=== PATIENT | female | born 1970 | race Caucasian/White ===

== ENCOUNTER 2019-11-20 15:22 | Emergency (ER) | payer OTHER, BC, SELFPAY ==
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
[2019-11-20 15:24] VITALS: BP 142/84; PULSE 102; RESP 18; TEMP 36.8; O2SAT 95
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
--- NOTE | 2019-11-20 15:56 | ECG_ITS ---
Measurements Intervals [place] Rate: 90 P: 12 SC: 180 QRS: 32 QRSD: 87 T: 31 QT: 355 QTc: 436 Interpretive Statements SINUS RHYTHM BORDERLINE R WAVE PROGRESSION, ANTERIOR LEADS BORDERLINE ECG Electronically Signed On 11-21-2019 8:14:16 CDT by Roman Corbin D.O.
[2019-11-20 16:25] LABS: Basophils Percent Auto 0.4 % (0.2-1.2); Eosinophils Absolute Auto 0.1 K/mm3 (0-0.3); Eosinophils Percent Auto 1.3 % (0-4.4); Hematocrit 40.5 % (37.0-47.0); Hemoglobin 13.3 g/dL (12.0-15.0); Immature Granulocyte Absolute 0.04 K/mm3 (0.00-0.031); Immature Granulocyte Percent A 0.4 % (0-0.5); Lymphocytes Absolute Auto 2.68 K/mm3 (0.9-3.2); Lymphocytes Percent Auto 25.8 % (18.3-44.2); Mean Corpuscular HGB Conc 32.8 g/dl (32-36); Mean Corpuscular Hemoglobin 31.1 pg (26-34); Mean Corpuscular Volume 94.8 fl (80-100); Mean Platelet Volume 9.5 fl (7.4-10.4); Monocytes Absolute Auto 0.8 K/mm3 (0.1-0.6); Monocytes Percent Auto 7.6 % (2.6-8.5); Neutrophils Absolute Auto 6.7 K/mm3 (1.3-6.7); Neutrophils Percent Auto 64.5 % (45.5-73.1); Platelet Count Result 236 k/mm3 (150-375); Red Blood Count 4.27 M/mm3 (4.2-5.4); Red Cell Distribution Width 13.3 % (11.5-14.5); White Blood Count 10.4 K/mm3 (4.5-10.0)
[2019-11-20 16:38] LABS: Alanine Aminotransferase 119 U/L (4-35); Albumin Level 4.5 g/dL (3.5-5.1); Alkaline Phosphatase 130 U/L (38-126); Aspartate Amino Transferase 72 U/L (14-36); Bilirubin,Total 0.4 mg/dL (0.2-1.3); Blood Urea Nitrogen 15 mg/dL (7-17); Calcium 9.6 mg/dL (8.4-10.2); Carbon Dioxide 24 mmol/L (22-30); Chloride 102 mmol/L (98-107); Estimated CRCL calculation 132 ml/min; Estimated Glomerular Filt Rate > 60; Glucose 101 mg/dL (65-105); Potassium 3.6 mmol/L (3.4-5.0); Sodium 134 mmol/L (137-145)
[2019-11-20] MEDS: KETOROLAC 30 MG/ML VIAL (*BKC) IV PUSH (17:50)
[2019-11-20 18:42] VITALS: BP 140/71; PULSE 102; RESP 17; O2SAT 98
== END 2019-11-20 18:58 | disposition home or self-care (01) ==
PROVIDERS: Emergency Provider Emergency Medicine
DX: S20.212A Contusion of left front wall of thorax, initial encounter (principal); S16.1XXA Strain of muscle, fascia and tendon at neck level, initial encounter; M19.90 Unspecified osteoarthritis, unspecified site; K21.9 Gastro-esophageal reflux disease without esophagitis; I10 Essential (primary) hypertension; E78.5 Hyperlipidemia, unspecified; K76.0 Fatty (change of) liver, not elsewhere classified; F17.210 Nicotine dependence, cigarettes, uncomplicated; M47.812 Spondylosis without myelopathy or radiculopathy, cervical region; V49.50XA Passenger injured in collision with unspecified motor vehicles in traffic accident, initial encounter; R94.31 Abnormal electrocardiogram [ECG] [EKG]
CPT/HCPCS: 36415; 71260; 72125; 80053; 85025; 93005; 96374; 99284; J1885; Q9967

== ENCOUNTER → 2020-05-09 14:32 | Outpatient (CLI) | payer BC, SELFPAY ==
--- NOTE | ~2020-05-09 | US_ITS ---
EXAMINATION: US pelvic complete w TV DATE: 05/09/2020 15:00 INDICATION: Mass seen on left ovary on CT examination. Back pain. Comparison:No prior studies for comparison. TECHNIQUE: Multiple transabdominal and endovaginal sonographic images of the pelvis performed. FINDINGS: The uterus is surgically absent. The right ovary is not visualized. Left ovary measures 4.2 x 2.5 x 3 cm. There is a 2.2 cm left ovari an cyst. There is no free fluid in the pelvis. There are no abnormal masses seen on either side. IMPRESSION: 1. 2.2 cm left ovarian cyst. Reviewed, dictated and finalized at location A.
== END ==
PROVIDERS: PCP Nurse Practitioner Family; Visit Provider Nurse Practitioner Family
DX: R19.09 Other intra-abdominal and pelvic swelling, mass and lump (principal); N83.202 Unspecified ovarian cyst, left side
CPT/HCPCS: 76830; 76856

== ENCOUNTER → 2020-08-14 12:16 | Outpatient (CLI) | payer BC, SELFPAY ==
--- NOTE | ~2020-08-14 | MM_ITS ---
EXAMINATION: MM screening [facility] BI w karen HISTORY: Screening mammogram TECHNIQUE: Craniocaudal and mediolateral oblique 3-D tomosynthesis images were obtained and synthetic 2-D images were generated. CAD analysis was submitted and interpreted. COMPARISON: 02/19/2019 bilateral diagnostic digital mammography and complete bilateral breast ultrasoun d 01/08/2019, 3 bilateral digital screening mammogram examinations BREAST PARENCHYMAL COMPOSITION: The breasts are heterogeneously dense, which may obscure small masses . FINDINGS: There is a new 12 mm circumscribed rounded mass in the upper mid left breast since 9. There is halo sign. The circumscribed margins, low density halo sign are consistent with benign pr ocess, likely a benign cyst.. There is no evidence of suspicious mass, calcification, or architectura l distortion to suggest malignancy in either breast. There has been no suspicious interval change. IMPRESSION: 1. No mammographic evidence of malignancy. 2. Recommend routine screening mammography in one year. BI-RADS Category 2: Benign finding(s). Reviewed, dictated and finalized at location A. 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
== END ==
PROVIDERS: PCP Nurse Practitioner Family; Visit Provider Nurse Practitioner Family
DX: Z12.31 Encounter for screening mammogram for malignant neoplasm of breast (principal)
CPT/HCPCS: 77063; 77067

== ENCOUNTER 2020-11-01 13:09 | Outpatient (CLI) | payer BC, SELFPAY ==
--- NOTE | 2020-11-01 15:00 | NEURO_ITS ---
Impression: # Complains of severe itching of lower extremities. # Normal nerve conduction study including sensory, motor nerves and F-waves. # No neuropathy noted. # Normal needle/EMG exam. Nerve Conduction Studies Anti Sensory Summary Table Stim Site NR Peak (ms) P-T Amp (?V) Site1 Site2 Delta-P (ms) Dist (cm) Alcon (m/s) Left Sup Fibular Anti Sensory (Ant Lat Mall) 14 cm 4.4 22.8 14 cm Ant Lat Mall 4.4 16.0 36 Right Sup Fibular Anti Sensory (Ant Lat Mall) 14 cm 3.3 18.9 14 cm Ant Lat Mall 3.3 16.0 48 Left Sural Anti Sensory (Lat Mall) Calf 4.6 11.5 Calf Lat Mall 4.6 16.0 35 Right Sural Anti Sensory (Lat Mall) Calf 4.6 6.4 Calf Lat Mall 4.6 16.0 35 Motor Summary Table Stim Site NR Onset (ms) O-P Amp (mV) Site1 Site2 Delta-0 (ms) Dist (cm) Alcon (m/s) Left Lateral Plantar Motor (ADM) Med Mall 4.9 2.8 Right Lateral Plantar Motor (ADM) Med Mall 4.6 5.2 Left Peroneal Motor (Vastus Med) Ankle 4.8 1.1 Popit Ankle 8.2 41.0 50 Popit 13.0 1.6 Right Peroneal Motor (Vastus Med) Ankle 4.7 1.7 Popit Ankle 8.3 41.0 49 Popit 13.0 1.6 Left Tibial Motor Run #1 (Abd Enamorado Brev) Ankle 4.4 1.6 Knee Ankle 8.8 45.0 51 Knee 13.2 1.1 Right Tibial Motor (Abd Enamorado Brev) Ankle 4.0 4.0 Knee Ankle 9.8 44.0 45 Knee 13.8 3.4 F Wave Studies NR F-Lat (ms) L-R F-Lat (ms) Left Peroneal (Mrkrs) (EDB) 53.28 0.44 Right Peroneal (Mrkrs) (EDB) 53.73 0.44 Left Tibial (Mrkrs) (Abd Hallucis) 54.55 0.14 Right Tibial (Mrkrs) (Abd Hallucis) 54.69 0.14 EMG Side Muscle Nerve Root Ins Act Fibs Amp Dur Recrt Comment Right AntTibialis Dp Br Fibular L4-5 Nml Nml Nml Nml Nml Right Gastroc Tibial S1-2 Nml Nml Nml Nml Nml Right Fibularis Long Sup Br Fibular L5-S1 Nml Nml Nml Nml Nml Right Flex Dig Long Tibial L5-S2 Nml Nml Nml Nml Nml Right Ext Dig Brev Dp Br Fibular L5, S1 Nml Nml Nml Nml Nml Left AntTibialis Dp Br Fibular L4-5 Nml Nml Nml Nml Nml Left Gastroc Tibial S1-2 Nml Nml Nml Nml Nml Left Fibularis Long Sup Br Fibular L5-S1 Nml Nml Nml Nml Nml Left Flex Dig Long Tibial L5-S2 Nml Nml Nml Nml Nml Left Ext Dig Brev Dp Br Fibular L5, S1 Nml Nml Nml Nml Nml MTDD
== END 2020-11-01 13:10 | disposition home or self-care (01) ==
LOC: ANHNEURO 13:09
PROVIDERS: PCP Nurse Practitioner Family; Visit Provider Nurse Practitioner Family
DX: G62.9 Polyneuropathy, unspecified (principal)
CPT/HCPCS: 95886; 95910

== ENCOUNTER 2021-01-08 11:10 | Emergency (ER) | payer BC, SELFPAY ==
--- NOTE | ~2021-01-08 | XR_ITS ---
EXAMINATION: XR chest 2V 01/08/2021 12:02 INDICATION: Congestion and cough PROCEDURE: 2 view chest COMPARISON: 07/10/2016 FINDINGS: The lungs are clear. The cardiomediastinal silhouette is within normal limits. There are no pleural effusions. There is no pneumothorax suspected. IMPRESSION: 1: NO ACUTE CARDIOPULMONARY DISEASE. Reviewed, dictated and finalized at location B.
[2021-01-08 11:20] VITALS: BP 173/111; PULSE 101; RESP 16; TEMP 36.6; O2SAT 98
--- NOTE | 2021-01-08 11:36 | ED.URI ---
HPI - URI/Sore Throat General Chief Complaint: Upper Respiratory Infection Stated Complaint: Congestion Time Seen by Provider: 01/08/21 11:36 Source: patient Mode of arrival: ambulatory Limitations: no limitations History of Present Illness HPI Narrative: Kimberly Vazquez is a 50 yo female with a PMH of HTN who comes to [facility] with a few days of congestion cough and tightness of chest started 3 days ago now has gotten worse. She is using Mucinex [id number] multisystem cold remedy and currently takes Zyrtec. She thinks that she has bronchitis and was unable to get into her primary care physician's office Related Data Home Medications Medication Instructions Recorded Confirmed atorvastatin 10 mg PO DAILY 01/08/21 01/08/21 cetirizine [Zyrtec] 10 mg PO DAILY 01/08/21 01/08/21 duloxetine 60 mg PO DAILY 01/08/21 01/08/21 hydrochlorothiazide 12.5 mg PO DAILY 01/08/21 01/08/21 losartan 50 mg PO DAILY 01/08/21 01/08/21 Allergies Allergy/AdvReac Type Severity Reaction Status Date / Time terbinafine Allergy Unknown RASH Verified 11/20/19 15:31 amitriptyline Allergy Rash Verified 01/08/21 11:35 Review of Systems Review of Systems: Narrative: CONSTITUTIONAL: Denies fever, chills, sweats. EYES: Denies visual changes, redness, discharge. ENT: Denies rhinorrhea, has congestion, has sore throat, has otalgia. CARDIOVASCULAR: Denies chest pain, palpitations, edema. RESPIRATORY: Denies dyspnea, wheezing, has cough GASTROINTESTINAL: Denies abdominal pain, nausea, vomiting, diarrhea. GENITOURINARY: Denies dysuria, hematuria, abnormal discharge SKIN: Denies rash or itching. NEUROLOGIC: Denies numbness, or focal weakness. PSYCHIATRIC: Denies anxiety or depression. [facility] Past Medical History Medical History Arthritis GERD (gastroesophageal reflux disease) HLD (hyperlipidemia) HTN (hypertension) Surgical History Surgical History H/O sinus surgery History of cholecystectomy History of hysterectomy Family History Family History Other Hypertension Social History Social History (Updated 01/08/21 @ 11:57 by Kaylin Barron CNP) Smoking packs per day: 0.75 Smoking cigarettes per day: 15.0 Smoking status: Current every day smoker Tobacco type: cigarettes Alcohol intake: current Comments At time of signature, I agree with nursing past medical, surgical, social and family history. There is no relevant family history pertinent to the presenting complaint. BP elevated, has HTN but takes meds when home for the day Exam Narrative: Exam Narrative: GENERAL: This is a well-nourished, well-developed patient, in moderate distress. HEAD: normocephalic, atraumatic. EYES: Sclera clear/white. Vision is grossly intact. EARS: External ears normal, auditory canals erythema and without drainage, TMs normal without perforation. Hearing grossly intact. NOSE: External nose normal with nasal discharge, nares with redness, has rhinorrhea. THROAT: Mucous membranes moist, posterior pharynx erythema without exudate NECK: Neck supple, tender submandibular lymph nodes CARDIOVASCULAR: Regular rate and rhythm without murmurs, gallops, or rubs. RESPIRATORY: Coarse to auscultation. Breath sounds equal bilaterally. No wheezes, rales, or rhonchi. GASTROINTESTINAL: Abdomen soft, SKIN: warm, intact with no suspicious lesions or rash, good texture and turgor. NEURO: awake, alert, and oriented to person, place and time. There were no obvious focal neurologic abnormalities. Steady gait EXTREMITIES: Normal range of motion. BACK: Nontender without deformity Course Course Emergency Course: Patient has been having upper respiratory symptoms for the last 40 days and has taken Mucinex [id number] meds and Zyrtec but is still a sinus congestion ear pain and cough and feeling ch
== END 2021-01-08 12:24 | disposition home or self-care (01) ==
PROVIDERS: Emergency Provider Nurse Practitioner
DX: J40 Bronchitis, not specified as acute or chronic (principal); Z20.822 Contact with and (suspected) exposure to COVID-19; I10 Essential (primary) hypertension; F17.210 Nicotine dependence, cigarettes, uncomplicated; M19.90 Unspecified osteoarthritis, unspecified site; K21.9 Gastro-esophageal reflux disease without esophagitis; E78.5 Hyperlipidemia, unspecified
CPT/HCPCS: 71046; 87426; 87804; 99213; C9803; G0463

== ENCOUNTER 2021-01-10 15:08 | Emergency (ER) | payer BC, SELFPAY ==
[2021-01-10 15:27] VITALS: BP 166/96; PULSE 113; RESP 18; TEMP 36.2; O2SAT 99
[2021-01-10 17:06] VITALS: BP 161/95; PULSE 106; RESP 18; O2SAT 92
[2021-01-10 17:35] VITALS: BP 95/83; PULSE 99; RESP 21; O2SAT 96
--- NOTE | 2021-01-10 18:17 | ED.RECABL ---
HPI - Recheck/Abnormal Lab/Rx General Chief Complaint: Recheck/Abnormal Lab/Rx Stated Complaint: high blood pressure Time Seen by Provider: 01/10/21 17:05 Source: patient Mode of arrival: ambulatory Limitations: no limitations History of Present Illness HPI narrative: 50-year-old female History of hypertension Reports that her blood pressure readings at home today were high She contacted urgent care and they told her that it was too high for the urgent care to evaluate and that she should go to the emergency department Apart from the high blood pressure readings she does not have any other new symptoms; no neuro symptoms, no chest pain, no shortness of breath, no headache She has had some mild URI symptoms for several days, and was seen 2 days ago at urgent care and started on prednisone at that time She also has some discoloration of her right thumbnail Related Data Home Medications Medication Instructions Recorded Confirmed atorvastatin 10 mg PO DAILY 01/08/21 01/08/21 cetirizine [Zyrtec] 10 mg PO DAILY 01/08/21 01/08/21 duloxetine 60 mg PO DAILY 01/08/21 01/08/21 hydrochlorothiazide 12.5 mg PO DAILY 01/08/21 01/08/21 losartan 50 mg PO DAILY 01/08/21 01/08/21 Allergies Allergy/AdvReac Type Severity Reaction Status Date / Time terbinafine Allergy Unknown RASH Verified 01/10/21 17:07 amitriptyline Allergy Rash Verified 01/10/21 17:07 Review of Systems Review of Systems: All systems reviewed & are unremarkable except as noted in HPI and below Constitutional: Constitutional: Reports no additional constitutional complaints, Denies chills, Denies fever(s), Denies headache(s) and Denies weakness Eyes: Eyes: Reports no additional eye complaints, Denies change in vision and Denies photophobia ENT: Denies headache(s) and Denies epistaxis Cardiovascular: Cardiovascular: Denies chest pain, Denies rapid heart rate, Denies dyspnea and Denies slow heart rate Respiratory: Respiratory: Reports cough and Denies dyspnea Gastrointestinal: Gastrointestinal: Denies nausea and Denies vomiting Genitourinary: Genitourinary: Denies urinary frequency Musculoskeletal: Musculoskeletal: Denies deformity, Denies arthralgias, Denies joint swelling and Denies numbness Integumentary/Breasts: Skin/Breast: Denies rash and Denies wounds Neurologic: Denies headache(s), Denies focal weakness and Denies numbness Psychiatric: Psychiatric: Reports no additional psychiatric complaints Endocrine: Endocrine: Reports no additional endocrine complaints Hematologic/Lymphatic: Hematologic/Lymphatic: Reports no additional hematologic/lymphatic complaints Allergic/Immunologic: Allergic/Immunologic: Reports no additional allergic/immunologic complaints PMFSH Past Medical History Medical History Arthritis GERD (gastroesophageal reflux disease) HLD (hyperlipidemia) HTN (hypertension) Surgical History Surgical History H/O sinus surgery History of cholecystectomy History of hysterectomy Family History Family History Other Hypertension Social History Social History (Updated 01/08/21 @ 11:57 by Kaylin Barron CNP) Smoking packs per day: 0.75 Smoking cigarettes per day: 15.0 Smoking status: Current every day smoker Tobacco type: cigarettes Alcohol intake: current Gender identity (if verbalized by the patient): Female Exam Const: General: cooperative, healthy appearing, no acute distress and alert Orientation/consciousness: patient oriented x3 (alert) HENMT: Head: normal to inspection, normocephalic and atraumatic Ears: external ears normal General nose exam: no epistaxis Eyes: Conjunctivae: conjunctivae normal EOM: EOMs intact bilaterally Neck: Neck: normal visual inspection, supple and no JVD Resp: Effort & Inspection: normal respiratory
[2021-01-10 18:29] VITALS: BP 152/103; PULSE 97; RESP 18; O2SAT 99
== END 2021-01-10 18:45 | disposition home or self-care (01) ==
PROVIDERS: Emergency Provider Emergency Medicine
DX: I10 Essential (primary) hypertension (principal); B35.1 Tinea unguium; M19.90 Unspecified osteoarthritis, unspecified site; K21.9 Gastro-esophageal reflux disease without esophagitis; E78.5 Hyperlipidemia, unspecified
CPT/HCPCS: 99281

== ENCOUNTER 2021-01-17 14:46 | Emergency (ER) | payer BC, SELFPAY ==
[2021-01-17 15:10] VITALS: BP 156/104; PULSE 108; RESP 16; TEMP 37.3; O2SAT 98
--- NOTE | 2021-01-17 15:11 | ED.URI ---
HPI - URI/Sore Throat General Chief Complaint: Upper Respiratory Infection Stated Complaint: cough Time Seen by Provider: 01/17/21 15:11 Source: patient and RN notes reviewed Mode of arrival: ambulatory Limitations: no limitations History of Present Illness HPI Narrative: 50-year-old female returns to the [facility] with continued symptoms of bronchitis. Patient was seen on January 08 diagnosed with bronchitis after chest x-ray. Was then seen in the ER for 28 with hypertension issues. Patient states that her symptoms worse just not completely gone. Has not followed up with primary care provider. 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 States she has had a strong cough. Still currently a smoker. Finished her antibiotics and prednisone. States the only medication that works for her is a 7-day course of steroids. Related Data Home Medications Medication Instructions Recorded Confirmed atorvastatin 10 mg PO DAILY 01/08/21 01/17/21 cetirizine [Zyrtec] 10 mg PO DAILY 01/08/21 01/17/21 duloxetine 60 mg PO DAILY 01/08/21 01/17/21 hydrochlorothiazide 12.5 mg PO DAILY 01/08/21 01/17/21 losartan 50 mg PO DAILY 01/08/21 01/17/21 Allergies Allergy/AdvReac Type Severity Reaction Status Date / Time terbinafine Allergy Unknown RASH Verified 01/17/21 15:29 amitriptyline Allergy Rash Verified 01/17/21 15:29 Review of Systems Review of Systems: Narrative: CONSTITUTIONAL: Denies fever, chills, or sweats. EYES: Denies visual changes, redness, or discharge. ENT: Reports rhinorrhea, congestion. Denies sore throat, or otalgia. CARDIOVASCULAR: Denies chest pain, palpitations, or edema. RESPIRATORY: Reports productive cough without dyspnea. GASTROINTESTINAL: Denies abdominal pain, nausea, vomiting, or diarrhea. MUSCULOSKELETAL: Denies back pain, joint pain, or myalgia. NEUROLOGIC: Denies headache, numbness, or weakness. PSYCHIATRIC: Denies anxiety or depression. All other systems reviewed are negative, except as documented in HPI. [facility] Past Medical History Medical History Arthritis GERD (gastroesophageal reflux disease) HLD (hyperlipidemia) HTN (hypertension) Surgical History Surgical History H/O sinus surgery History of cholecystectomy History of hysterectomy Family History Family History Other Hypertension Social History Social History Smoking packs per day: 0.75 Smoking cigarettes per day: 15.0 Smoking status: Current every day smoker Tobacco type: cigarettes Alcohol intake: current Gender identity (if verbalized by the patient): Female Comments At the time of my signature, I reviewed and agree with the nursing past medical, surgical, social, and family history. There is no relevant family history pertinent to the patient complaint. Exam Narrative: Exam Narrative: GENERAL: This is a well-nourished, well-developed patient, in no apparent distress. HEAD: normocephalic, atraumatic. EYES: PERRL. Sclera clear/white. Vision is grossly intact. EARS: External ears normal, auditory canals clear and without drainage, TMs normal without perforation. Hearing grossly intact. NOSE: External nose normal with no obvious nasal discharge, nares without redness, no rhinorrhea. THROAT: Mucous membranes moist, posterior pharynx clear. NECK: Neck supple, non-tender without lymphadenopathy, masses or thyromegaly. CARDIOVASCULAR: Regular rate and rhythm without murmurs, gallops, or rubs. RESPIRATORY: Right lower lobe coarse to auscultation, cleared when she had a productive cough. Bilateral lungs diminished, patient is a smoker. GASTROINTESTINAL: Abdomen soft, non-tender, nondistended. SKIN: warm, Dry, intact with no suspicious lesions or rash, good texture and turgor. NEURO: awake, alert, and oriented to person, plac
== END 2021-01-17 15:55 | disposition home or self-care (01) ==
PROVIDERS: Emergency Provider Nurse Practitioner
DX: J40 Bronchitis, not specified as acute or chronic (principal); F17.210 Nicotine dependence, cigarettes, uncomplicated; M19.90 Unspecified osteoarthritis, unspecified site; K21.9 Gastro-esophageal reflux disease without esophagitis; E78.5 Hyperlipidemia, unspecified; I10 Essential (primary) hypertension
CPT/HCPCS: 99213; G0463

== ENCOUNTER 2021-08-30 08:59 | Outpatient (CLI) | payer BC, SELFPAY ==
--- NOTE | 2021-08-31 15:33 | WPDPFTINT ---
PFT Procedure Performed PFT Procedure Performed Spirometry with Pre/Post Bronchodilator Plethysmography (Lung Vol) Diffusing Cap (DLCO) Flow Vol Loop PFT Interpretation Lung volumes were measured with the body plethysmography method. The diminished expiratory reserve volume is due to obesity. The remaining lung volumes are unremarkable. Spirometry showed normal expiratory flow rates and a normal FEV1 to FVC ratio 73%. Following administration of a bronchodilator there was no significant increase in expiratory flow rates. Lung diffusion capacity is within the normal range. Flow volume loop is unremarkable. Impression: Spirometry, lung volumes, and lung diffusion capacity all within the normal range.
== END 2021-08-30 09:00 | disposition home or self-care (01) ==
PROVIDERS: PCP Family Medicine; Visit Provider Allergy & Immunology
DX: J45.40 Moderate persistent asthma, uncomplicated (principal)
CPT/HCPCS: 94060; 94726; 94729

== ENCOUNTER → 2021-10-24 13:18 | Outpatient (CLI) | payer BC, SELFPAY ==
--- NOTE | ~2021-10-24 | MM_ITS ---
EXAMINATION: MM screening [facility] BI w karen HISTORY: Screening mammogram TECHNIQUE: Craniocaudal and mediolateral oblique 3-D tomosynthesis images were obtained and synthetic 2-D images were generated. CAD analysis was submitted and interpreted. COMPARISON: 08/14/2020, 01/08/2019 BREAST PARENCHYMAL COMPOSITION: The breasts are heterogeneously dense, which may obscure small masses . FINDINGS: A cyst is noted in the anterior third of the left breast. There is no evidence of suspiciou s mass, calcification, or architectural distortion to suggest malignancy in either breast. There has been no suspicious interval change. IMPRESSION: 1. No mammographic evidence of malignancy. 2. Recommend routine screening mammography in one year. BI-RADS Category 2: Benign finding(s). Reviewed, dictated and finalized at location A. 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
== END ==
PROVIDERS: Visit Provider Family Medicine
DX: Z12.31 Encounter for screening mammogram for malignant neoplasm of breast (principal)
CPT/HCPCS: 77063; 77067

== ENCOUNTER → 2022-04-19 13:17 | Outpatient (CLI) | payer BC, SELFPAY ==
--- NOTE | ~2022-04-19 | CT_ITS ---
EXAMINATION:CT lung screening DATE: 04/19/2022 13:32 INDICATION: Tobacco use. Current smoker with 26 pack year history. TECHNIQUE: Computed tomography (CT) of the chest was performed without intravenous contrast. Automate d exposure control and iterative reconstruction technique were employed. The dose-length product (DLP ) was 403.01 mGy-cm. COMPARISON: Chest CT 11/20/2019 FINDINGS: There is stable mild scarring at the lung apices. There is mild emphysema. There are size i s normal. No pericardial effusion. There is diffuse hepatic steatosis. There are changes of cholecyst ectomy. There is an old healed left rib fracture. There is moderate thoracic spondylosis. IMPRESSION: 1. Lung-RADS category 2: Benign appearance or behavior. Continue annual screening with noncontrast lo w-dose chest CT in 12 months. Reviewed, dictated and finalized at location A. IMPRESSION: 1. Lung-RADS category 2: Benign appearance or behavior. Continue annual screeni ng with noncontrast low-dose chest CT in 12 months.
== END ==
PROVIDERS: PCP Physician Assistant; Visit Provider Physician Assistant
DX: Z12.2 Encounter for screening for malignant neoplasm of respiratory organs (principal); Z72.0 Tobacco use
CPT/HCPCS: 71271

== ENCOUNTER 2023-03-28 08:50 | Outpatient (CLI) | payer BC, SELFPAY ==
--- NOTE | ~2023-03-28 | US_ITS ---
EXAMINATION: US art doppler w press LE BI DATE: 03/28/2023 09:52 INDICATION: Peripheral arterial occlusive disease. TECHNIQUE: Segmental pressures and plethysmographic and Doppler waveforms of the brachial and lower e xtremity arteries were obtained. COMPARISON: None. FINDINGS: Right and left brachial artery pressures of 110 mm Hg and 97 mm Hg, respectively, are concordant (nor mal difference <= 30 mmHg). The right and left high-thigh pressure indices are 1.13 and 1.43, respect ively (normal > 1.2). The right ankle-brachial index (BRENDA) is 1.24 (normal >= 0.9-1). The right great toe-brachial index (T BI) is 0.78 (normal >= 0.6-0.8). The right lower extremity segmental pressure gradients are normal (n ormal gradients <= 20-30 mmHg between adjacent levels on the same leg or the same levels on the two l egs). Arterial waveforms are triphasic at the right common femoral, superficial femoral and posterior tibial arteries and biphasic at the right popliteal and dorsalis pedis arteries with brisk systolic upstrokes throughout. The left BRENDA is 1.18. The left TBI is 0.55. The left lower extremity segmental pressure gradients are normal. Arterial waveforms are triphasic at the left common femoral and superficial femoral arteries and biphasic at the remaining arteries with brisk systolic upstrokes throughout.. IMPRESSION: 1. Mild arterial occlusive disease in the bilateral lower limbs with mildly decreased right high thig h pressure index and mildly decreased left TBI. Reviewed, dictated and finalized at location A. IMPRESSION: 1. Mild arterial occlusive disease in the bilateral lower limbs with mildly dec reased right high thigh pressure index and mildly decreased left TBI.
--- NOTE | 2023-03-28 09:55 | ECG_ITS ---
Measurements Intervals [place] Rate: 81 P: -3 OR: 183 QRS: 41 QRSD: 90 T: 72 QT: 364 QTc: 424 Interpretive Statements SINUS RHYTHM LOW QRS VOLTAGE IN PRECORDIAL LEADS MINIMAL Q WAVES- INFERIOR LEADS BORDERLINE ST-T WAVE ABNORMALITY- HIGH LATERAL LEADS BASELINE WANDER- I, II, AVR BORDERLINE ECG COMPARED TO ECG 11/20/2019 16:14:01 NO SIGNIFICANT CHANGES Electronically Signed On 03-28-2023 11:10:47 CDT by Roman Corbin D.O.
== END 2023-03-28 08:51 | disposition home or self-care (01) ==
PROVIDERS: PCP Family Medicine; Visit Provider Podiatrist Foot & Ankle Surgery
DX: I73.9 Peripheral vascular disease, unspecified (principal); R03.0 Elevated blood-pressure reading, without diagnosis of hypertension; R94.31 Abnormal electrocardiogram [ECG] [EKG]
CPT/HCPCS: 93005; 93923

== ENCOUNTER → 2023-06-19 13:03 | Outpatient (CLI) | payer BC, SELFPAY ==
--- NOTE | ~2023-06-19 | US_ITS ---
US venous doppler LE RT DATE: 06/19/2023 13:41 INDICATION: Localized swelling, mass, lump, right leg TECHNIQUE: Real-time and color flow imaging and Doppler analysis of the veins of the right lower extr emity COMPARISON: None FINDINGS: The right greater saphenous vein is patent. There is spontaneous and phasic flow and normal augmentation and color flow signal and normal compression of the deep veins of the right lower extre mity. IMPRESSION: No evidence of deep venous thrombosis of right lower extremity Reviewed, dictated and finalized at Location A. Reviewed, dictated and finalized at location L.
== END ==
PROVIDERS: PCP Podiatrist Foot & Ankle Surgery; Visit Provider Podiatrist Foot & Ankle Surgery
DX: R22.41 Localized swelling, mass and lump, right lower limb (principal)
CPT/HCPCS: 93971

== ENCOUNTER → 2023-10-10 12:49 | Outpatient (CLI) | payer BC, SELFPAY ==
--- NOTE | ~2023-10-10 | CT_ITS ---
EXAMINATION: CT sinus wo con DATE: 10/10/2023 13:11 INDICATION: Chronic sinusitis TECHNIQUE: Computed tomography (CT) of the paranasal sinuses was performed without intravenous contra st. The dose-length product was 271.16 mGy-cm. Automated exposure control and iterative reconstructio n technique were employed. COMPARISON: CT dated 09/04/2018 FINDINGS: No significant mucosal thickening. No air-fluid levels. No significant mucoperiosteal react ion. Ostiomeatal units are patent. Mild rightward nasal septal deviation. Mastoids are pneumatized. IMPRESSION: 1. No significant sinus disease. Reviewed, dictated and finalized at location B. 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
== END ==
PROVIDERS: PCP Otolaryngology; Visit Provider Otolaryngology
DX: J32.2 Chronic ethmoidal sinusitis (principal); J34.2 Deviated nasal septum; J34.89 Other specified disorders of nose and nasal sinuses
CPT/HCPCS: 70486

== ENCOUNTER 2024-06-04 14:58 | Outpatient (CLI) | payer BC, SELFPAY ==
--- NOTE | ~2024-06-04 | MM_ITS ---
EXAMINATION: MM screening luma BI w karen HISTORY: Screening mammogram TECHNIQUE: Craniocaudal and mediolateral oblique 3-D tomosynthesis images were obtained and synthetic 2-D images were generated. CAD analysis was submitted and interpreted. COMPARISON: 10/24/2021, 08/14/2020 BREAST PARENCHYMAL COMPOSITION:Not Dense. There are scattered areas of fibroglandular density. FINDINGS: There is a 3 cm mass at the posterior inner right breast, probable several associated inter nal focal calcifications. This appears to be new from prior exam. No suspicious abnormality of the le ft breast identified. IMPRESSION: New 3 cm posterior, inner right breast mass. Spot compression views and ultrasound are recommended f or further evaluation. BI-RADS Category 0: Incomplete: Needs additional imaging evaluation. Reviewed, dictated and finalized at location . IMPRESSION: New 3 cm posterior, inner right breast mass. Spot compression views and ultras ound are recommended for further evaluation. BI-RADS Category 0: Incomplete: Needs additional imaging evaluation.
== END 2024-06-04 14:59 | disposition home or self-care (01) ==
LOC: MICIMG 14:58
PROVIDERS: PCP Nurse Practitioner; Visit Provider Nurse Practitioner
DX: N63.14 Unspecified lump in the right breast, lower inner quadrant (principal); Z12.31 Encounter for screening mammogram for malignant neoplasm of breast
CPT/HCPCS: 77063; 77067

== ENCOUNTER 2024-06-30 09:21 | Outpatient (CLI) | payer BC, SELFPAY ==
--- NOTE | ~2024-06-30 | MMUS_ITS ---
EXAMINATION: MM diagnostic luma RT w karen, US breast RT limited HISTORY: Right breast mass TECHNIQUE: Additional 3-D tomosynthesis images of the right breast were performed and synthetic 2-D i mages were generated. CAD analysis was submitted and interpreted. High resolution limited right breas t ultrasound was performed. COMPARISON: 06/04/2024 BREAST PARENCHYMAL COMPOSITION:Not Dense. There are scattered areas of fibroglandular density. FINDINGS: MAMMOGRAPHIC FINDINGS: Spot compression views confirm a partially imaged mass at the posterior, upper, inner right breast, m easuring at least 2 cm in diameter. Visualized difficult due to the far posterior positioning. ULTRASOUND: At the 1:00 position right breast, 12 cm from the nipple, there is a 2.4 x 1.4 x 2.7 cm hypoechoic ma ss with mildly irregular/angulated borders. No definite posterior shadowing. At the 12:00 position ri ght breast, 3 cm from the nipple, there is a 0.7 cm oval, circumscribed homogeneously hypoechoic mass with posterior through transmission. There is a similar-appearing smaller lesion in this region, dimple suring 0.3 cm in diameter. IMPRESSION: 2.4 x 1.4 x 2.7 cm suspicious mass at the 1:00 position right breast, 12 cm from the nipple. Ultraso und guided biopsy is recommended to establish a histologic diagnosis. 2 additional subcentimeter masses at the 12:00 position right breast, 3 cm from the nipple, with a pr obable benign appearance overall. Six-month follow-up ultrasound recommended to reassess these lesion s. Depending on pathology results of the more suspicious larger mass noted above, more aggressive int ervention/biopsy regarding the smaller lesions can be performed if it will affect clinical management . BI-RADS category 4, suspicious findings. Reviewed, dictated and finalized at location M. IMPRESSION: 2.4 x 1.4 x 2.7 cm suspicious mass at the 1:00 position right breast, 12 cm fr om the nipple. Ultrasound guided biopsy is recommended to establish a histologi c diagnosis. 2 additional subcentimeter masses at the 12:00 position right breast, 3 cm from the nipple, with a probable benign appearance overall. Six-month follow-up ult rasound recommended to reassess these lesions. Depending on pathology results o f the more suspicious larger mass noted above, more aggressive intervention/bio psy regarding the smaller lesions can be performed if it will affect clinical m anagement. BI-RADS category 4, suspicious findings.
== END 2024-06-30 09:22 | disposition home or self-care (01) ==
LOC: MICIMG 09:22
PROVIDERS: PCP Nurse Practitioner; Visit Provider Nurse Practitioner
DX: R92.8 Other abnormal and inconclusive findings on diagnostic imaging of breast (principal); N63.12 Unspecified lump in the right breast, upper inner quadrant; N63.15 Unspecified lump in the right breast, overlapping quadrants
CPT/HCPCS: 76642; 77061; 77065; G0279

== ENCOUNTER 2024-07-08 08:14 | Outpatient (CLI) | payer BC, SELFPAY ==
--- NOTE | ~2024-07-08 | CT_ITS ---
EXAMINATION: CT lung screening DATE: 07/08/2024 08:28 INDICATION: Personal history of nicotine dependence TECHNIQUE: Computed tomography (CT) of the chest was performed without intravenous contrast. The dose -length product was 400.27 mGy-cm. Automated exposure control and iterative reconstruction technique were employed. COMPARISON: CT dated 04/19/2022 FINDINGS: Heart size normal. No significant pleural or pericardial effusion. There are cholecystectom y clips. Mildly elevated left diaphragm. No endobronchial lesions. No pneumothorax. No focal airspace consolidation. No suspicious pulmonary nodules or masses. There is an old healed left rib fracture. Moderate thoracic spondylosis. IMPRESSION: 1. Lung-RADS category 1: Negative. Continue annual screening with noncontrast low-dose chest CT in 12 months. Reviewed, dictated and finalized at location B. IMPRESSION: 1. Lung-RADS category 1: Negative. Continue annual screening with noncontrast l ow-dose chest CT in 12 months.
--- NOTE | ~2024-07-08 | US_ITS ---
EXAM: ABDOMEN ULTRASOUND HISTORY: R74.8 - Abnormal levels of other serum enzymes COMPARISON: None FINDINGS: LIVER: The liver is increased in echogenicity, suggesting fatty infiltration. What is designated sonographically as the main portal vein is patent, demonstrating hepatopedal flow. GALLBLADDER: Surgically absent. BILE DUCTS: Common bile duct measures 4.1mm. PANCREAS: Limited evaluation of the pancreas secondary to overlying bowel gas SPLEEN: The spleen is unremarkable in echogenicity and size measuring 10.3cm in longitudinal dimensio n. The place RIGHT KIDNEY: 11.4 cm. In length. No hydronephrosis or bulky renal calculi. LEFT KIDNEY: 11.5cm in length. No hydronephrosis or renal calculi. VASCULATURE : The abdominal aorta is nonaneurysmal. The IVC is patent. IMPRESSION: Fatty infiltration of the liver. Evaluation of the pancreas is limited by overlying bowel gas. Otherwise, unremarkable sonographic evaluation of the abdomen, as detailed above. Reviewed, dictated and finalized at location A. IMPRESSION: Fatty infiltration of the liver. Evaluation of the pancreas is limited by overlying bowel gas. Otherwise, unremarkable sonographic evaluation of the abdomen, as detailed mervin veras.
== END 2024-07-08 08:15 | disposition home or self-care (01) ==
LOC: MICIMG 08:14
PROVIDERS: PCP Nurse Practitioner; Visit Provider Nurse Practitioner
DX: Z12.2 Encounter for screening for malignant neoplasm of respiratory organs (principal); K76.0 Fatty (change of) liver, not elsewhere classified; R74.8 Abnormal levels of other serum enzymes; Z87.891 Personal history of nicotine dependence
CPT/HCPCS: 71271; 76700

== ENCOUNTER 2025-06-29 15:01 | Outpatient (CLI) | payer OTHER, SELFPAY ==
--- NOTE | ~2025-06-29 | US_ITS ---
EXAMINATION: US venous doppler UJon GOLDEN, 06/29/2025 15:05 CDT HISTORY: I82.612 - Acute embolism and thrombosis of superficial ve... Comparison: None Technique: Multiple goddard scale and color Doppler sonographic images were obtained of the internal jugular, subclavian, axillary, brachial, basilar, radial and ulnar veins. Findings: Venous System:Normal flow, augmentation and compressibility. No echogenic thrombus identified. Soft tissues: Soft tissues are unremarkable. Impression: Negative for DVT. Reviewed, dictated and finalized at location P. Impression: Negative for DVT.
== END 2025-06-29 15:02 | disposition home or self-care (01) ==
LOC: MICIMG 15:01
PROVIDERS: PCP Family Medicine; Visit Provider Family Medicine
DX: I82.612 Acute embolism and thrombosis of superficial veins of left upper extremity (principal)
CPT/HCPCS: 93971